=== PATIENT | female | born 1935 | race Caucasian/White ===

== ENCOUNTER → 2016-08-18 10:52 | Outpatient (CLI) | payer MEDICARE ==
[2013-01-17 13:32] VITALS: BMI 24.3
[~2016-08-18 10:52] MED LIST: CALCIUM 600+D T1 TA1 OR; FISH OIL 1,0001 CA1 PO; RED YEAST RICE600 MG PO; SINGULAIR5 MG PO; SYNTHROID125 MCG PO; VITAMIN D31000 UNIT OR; WELLBUTRIN XL300 M1 PO
== END | disposition home or self-care (01) ==
LOC: D.US 10:52
DX: C78.5 Secondary malignant neoplasm of large intestine and rectum (principal)

== ENCOUNTER 2016-12-08 06:13 | Emergency (ER) | payer MEDICARE ==
[2013-01-17 13:32] VITALS: BMI 24.3
[2016-12-08 07:49] LABS: BASOPHILS 0.5 % (0-2); EOSINOPHILS 3.8 % (0-7); HEMATOCRIT 43.1 % (36.0-48.0); IMMATURE GRANULOCYTES 0.4 % (0-5); LYMPHOCYTES 23.4 % (15-50); MCH 30.5 pg (26.0-34.0); MCHC 32.5 g/dL (31.0-37.0); MCV 93.9 fL (80.0-100.0); MEAN PLATELET VOLUME 9.4 fL (7.4-10.4); MONOCYTES 5.2 % (2-11); NEUTROPHILS 66.7 % (40-80); PLATELET COUNT 208 10x3/uL (130-400); RBC 4.59 10x6/uL (4.00-5.40); RDW 13.2 % (11.5-14.5); WBC 5.6 10x3/uL (4.8-10.8)
[2016-12-08 07:52] LABS: APPEARANCE CLEAR (CLEAR); BILIRUBIN NEGATIVE (NEGATIVE); COLOR YELLOW (YELLOW); GLUCOSE NEGATIVE (NEGATIVE); KETONE NEGATIVE (NEGATIVE); LEUKOCYTE ESTERASE NEGATIVE (NEGATIVE); NITRITE NEGATIVE (NEGATIVE); PROTEIN NEGATIVE (NEGATIVE); SPECIFIC GRAVITY 1.005 (1.005-1.020); UROBILINOGEN NORMAL (NORMAL)
[2016-12-08 08:07] LABS: ALBUMIN 3.7 g/dL (3.4-5.0); ALKALINE PHOSPHATASE 39 U/L (46-116); ALT (SGPT) 18 U/L (10-68); CALC OSMOLALITY 281 mosm/kg (275-300); CALCIUM 9.3 mg/dL (8.5-10.1); CARBON DIOXIDE 29.3 mmol/L (21.0-32.0); CHLORIDE - SERUM 105 mmol/L (98-107); GLUCOSE 107 mg/dL (74-106); POTASSIUM - SERUM 3.9 mmol/L (3.5-5.1); PROTEIN - SERUM 7.3 g/dL (6.4-8.2); SODIUM 142 mmol/L (136-145); UREA NITROGEN 9 mg/dL (7-18); eGFR NON AFRICAN AMERICAN 57 mL/min (90-120)
[2016-12-08 08:15] LABS: CREATINE KINASE 47 UL (21-215); MAGNESIUM - SERUM 2.3 mg/dL (1.8-2.4); PRO BNP 58 pg/mL (0-450); TROPONIN-I < 0.017 ng/mL (0.000-0.060)
== END 2016-12-08 10:00 | disposition home or self-care (01) ==
LOC: D.ER 06:13
PROVIDERS: Emergency Medicine
DX: R53.1 Weakness (principal); Z85.3 Personal history of malignant neoplasm of breast; I49.3 Ventricular premature depolarization

== ENCOUNTER → 2017-01-12 10:00 | Outpatient (CLI) | payer MEDICARE ==
[2013-01-17 13:32] VITALS: BMI 24.3
== END | disposition home or self-care (01) ==
LOC: D.RAD 09:30 → D.US 10:00 → D.RAD 11:30
DX: R10.9 Unspecified abdominal pain (principal); R94.5 Abnormal results of liver function studies

== ENCOUNTER → 2017-08-05 14:21 | Outpatient (CLI) | payer MEDICARE ==
[2013-01-17 13:32] VITALS: BMI 24.3
== END | disposition home or self-care (01) ==
LOC: D.US 14:21
DX: C50.812 Malignant neoplasm of overlapping sites of left female breast (principal); C78.5 Secondary malignant neoplasm of large intestine and rectum; C78.89 Secondary malignant neoplasm of other digestive organs; R60.0 Localized edema

== ENCOUNTER → 2017-09-01 11:10 | Outpatient (CLI) | payer MEDICARE ==
[2013-01-17 13:32] VITALS: BMI 24.3
== END | disposition home or self-care (01) ==
LOC: D.US 11:00
DX: I87.2 Venous insufficiency (chronic) (peripheral) (principal)

== ENCOUNTER 2017-12-14 19:11 | Inpatient (IN) | payer MEDICARE ==
[~2017-12-14] VITALS: Ht 172.7 cm; Wt 63.8 kg
[2017-12-14] VITALS (13 sets, daily range): BP systolic 73–101; BP diastolic 39–59
--- NOTE | ~2017-12-14 | HEMODYNAMI ---
PATIENT:ROBBIN LONG MEDICAL RECORD: [id number] : 39 LOCATION:[facility] D.2307 ADMISSION DATE: 12/14/17 Generatedon:12/18/201714:44 Patient name: ROBBIN LONG Patient #: [id number] SSN: : 1935 Date of study: 12/18/2017 Page: Of Hemodynamic Procedure Report Patient Data Patient Demographics Procedure consent was obtained First Name: ROBBIN Gender: Female Last Name: MERCEDES : 1935 [facility] Initial: NATHALY Age: 82 year(s) Patient #: [id number] Race: Unknown Additional ID: [id number] Contact details [address]: [address] [place] [address] [place] State: [place] City: [place] Zip code: [address] Past Medical History Allergies: No known allergies Admission Admission Data Admission Date: 12/14/2017 Admission Time: 22:35 Room #: 2307 Procedure Procedure Types Cath Procedure Diagnostic Procedure LHC LHC w/Coronaries Sedation Charges Moderate Sedation up to 15 minutes PCI Procedure Coronary Stent Coronary Stent Initial x2 Procedure Description Procedure Date Procedure Date: 12/18/2017 Procedure Start Time: 14:17 Procedure End Time: 14:44 Procedure Staff Name Function Americo Bangura MD Performing Physician Moira Henry RT Monitor Randall Pringle RN Nurse Paul James RT Scrub Procedure Data Cath Procedure Fluoroscopy Diagnostic fluoroscopy Total fluoroscopy Time: 6.5 time: 6.5 min min Diagnostic fluoroscopy Total fluoroscopy dose: 664 dose: 664 mGy mGy Contrast Material Contrast Material Type Amount (ml) Isovue 300 174 Entry Location Entry Primary Successful Side Size Upsize Upsize Entry Closure Succes sful Closure Location (Fr) 1 (Fr) 2 (Fr) Remarks Device Remarks Femoral Right 5 Fr 6 Fr Exoseal artery Short Estimated blood loss: 10 ml Diagnostic catheters Device Type Used For End Catheter Placement MULTIPACK Pigtail 5 Fr LV Angiography catheter MULTIPACK JL 4.0 5Fr Left Coronary catheter Angiography MULTIPACK 3DRC 5Fr Right Coronary catheter Angiography Procedure Complications No complications Procedure Medications Medication Administration Route Dosage 0.9% NaCl I.V. 100 ml/hr Oxygen NC 2 l/min Heparin Flush Bag added to field 2 bags (1000units/500ml NS) Lidocaine 2% added to field 20 Versed I.V. 1 mg Fentanyl I.V. 50 mcg Versed I.V. 1 mg Fentanyl I.V. 50 mcg Heparin Bolus I.V. 4000 units Integrilin (Bolus I.V. 5.6 ml 2mg/ml) Integrilin (Bolus wasted 4.4 ml 2mg/ml) Plavix P.O. 600 mg Hemodynamics Rest Pre Cath Intra NCS Post Cath Vital Signs Time Heart Resp SPO2 etCO2 NIBP Rhythm Pain Sedation Rate (ipm) (%) (mmHg) (mmHg) Status Level (bpm) 14:10:46 71 21 96 0 133/57(78) NSR 0 (11) 10(A) , No pain 14:15:27 71 20 94 0 125/54(75) NSR 0 (11) 10(A) , No pain 14:20:05 72 17 91 0 122/59(80) NSR 0 (11) 10(A) , No pain 14:24:44 71 18 92 0 113/50(83) NSR 0 (11) 9(A) , No pain 14:29:22 72 19 93 0 120/36(80) NSR 0 (11) 9(A) , No pain 14:34:01 72 18 92 0 119/48(84) NSR 0 (11) 10(A) , No pain 14:38:38 71 21 89 0 126/54(85) NSR 0 (11) 10(A) , No pain 14:43:18 72 19 94 0 118/48(85) NSR 0 (11) 10(A) , No pain Medications Time Medication Route Dose Verified Delivered Reason Notes Effectiveness by by 14:09:56 0.9% NaCl I.V. 100 Randall Randall Per physician ml/hr Pino Pringle RN RN 14:10:06 Oxygen NC 2 Randall Randall Per physician l/min Pino Pringle RN RN 14:10:18 Heparin Flush added 2 Randall Randall used for Bag to bags Pino Pringle procedure (1000units/500ml field RN RN NS) 14:10:28 Lidocaine 2% added 20ml Randall Randall for local to vial Pino Pringle anesthetic field RN RN 14:16:35 Versed I.V. 1 mg Randall Randall for sedation Pino Pringle RN RN 14:16:46 Fentanyl I.V. 50 Randall Randall for sedation mcg Pino Pringle RN RN 14:18:48 Versed I.V. 1 mg Randall Randall for sedation Pino Pringle RN RN 14:18:55 Fentanyl I.V. 50 Randall Randall for sedation mcg Pino Pringle RN RN 14:23:57 Heparin Bolus I.V. 4000 Randall Randall for units Pino Pringle anticoagulation RN RN 14:24:11 Integrilin I.V. 5.6 Randall Randall for (Bolus 2mg/ml) ml Pino Pringle antiplatelet RN RN therapy 14:24:23 Integrilin wasted 4.4 Randall Randall to sharp's (Bolus 2mg/ml) ml Pino Pringle RN RN 14:37:59 Plavix P.O. 600 Randall Randall for mg Pino Pringle antiplatelet RN RN therapy Procedure Log Time Note 13:45:35 Time tracking: Regular hours (M-F 7:00 - 5:00) 13:45:39 Plan of Care:Hemodynamics will remain stable., Cardiac rhythm will remain stable., Comfort level will be maintained., Respiratory function will remain adequate., Patient/ family verbilizes understanding of procedure., Procedure tolerated without complication., Recovers from procedure without complications.. 13:45:42 Paul James RT(R) sent for patient. Start room use. 13:57:53 Patient received from ICU to CCL 1 Alert and oriented. Tansferred to table in Supine position. 13:57:55 Warm blankets applied, and navya hugger turned on for patient comfort. 13:57:56 Correct patient and procedure confirmed by team. 13:58:03 Signed procedure consent form obtained from patient. 13:58:04 ECG and BP/O2 sat monitors applied to patient. 14:09:56 0.9% NaCl 100 ml/hr I.V. was administered by Randall Pringle RN; Per physician; 14:09:59 Vital chart was started 14:10:06 Oxygen 2 l/min NC was administered by Randall Lorigan RN; Per physician; 14:10:06 Rhythm: sinus rhythm 14:10:08 Full Disclosure recording started 14:10:14 H&P Date Dictated: 12/14/2017 Within 30 days and on chart.. 14:10:16 Pre-procedure instructions explained to patient. 14:10:16 Pre-op teaching completed and patient verbalized understanding. 14:10:18 Heparin Flush Bag (1000units/500ml NS) 2 bags added to field was administered by Randall Pringle RN; used for procedure; 14:10:18 Family in waiting room. 14:10:21 Patient NPO since Midnight. 14:10:26 Patient allergic to No known allergies 14:10:28 Lidocaine 2% 20ml vial added to field was administered by Randall Pringle RN; for local anesthetic; 14:10:29 Is the patient allergic to Iodine/contrast media? No. 14:10:33 Is patient on blood thinner?No 14:10:35 Patient diabetic? No. 14:10:37 Previous problem with sedation/anesthesia? No ? 14:10:38 Snore? No 14:10:39 Sleep apnea? No 14:10:40 Deviated septum? No 14:10:41 Opens mouth fully? Yes 14:10:42 Sticks out tongue? Yes 14:10:43 Airway obstruction? No ? 14:10:51 Dentures? No IN TIGHT 14:15:38 Pre procedure: right dorsailis pedis pulse 2+ Normal; easily identifiable; not easily obliterated 14:15:42 Patient pain scale 0/10 ?. 14:15:51 IV patent on arrival in port, Rt subclavian with 0.9% NaCl at KVO. 14:15:57 Lab results completed and on chart. 14:16:01 Right groin area was prepped with chlora-prep and draped in sterile fashion 14:16:02 Alarms reviewed by R. N. 14:16:02 Sharps counted by scrub and verified by R.N. 14:16:04 Final Timeout: patient, procedure, and site verified with staff and physician. All members of the team are in agreement. 14:16:05 Right groin site verified by team. 14:16:08 Physical assessment completed. ASA score P 2 - A patient with mild systemic disease as per Americo Bangura MD. 14:16:11 Sedation plan: IV Moderate Sedation Medication:Versed, Fentanyl 14:16:14 Zero performed for pressure channel P1 14:16:35 Versed 1 mg I.V. was administered by Randall Pringle RN; for sedation; 14:16:46 Fentanyl 50 mcg I.V. was administered by Randall Pringle RN; for sedation; 14:17:13 Procedure started. 14:17:16 Local anesthetic to right femoral artery with Lidocaine 2% by Americo Bangura MD.INITIAL ACCESS ONLY 14:17:18 Use device set Femoral Dx 14:17:19 ACIST Syringe (15213) opened to sterile field. 14:17:19 Bag Decanter (2002S) opened to sterile field. 14:17:19 Medline Cath Pack ([id number]) opened to sterile field. 14:17:20 DIAGNOSTIC WIRE .035 260cm J wire (251568) opened to sterile field. 14:17:21 ACIST Hand Control (91518) opened to sterile field. 14:17:22 ACIST Manifold (41024) opened to sterile field. 14:17:22 DIAGNOSTIC Multipack 5Fr catheter set ([id number]) opened to sterile field. 14:17:23 Tegaderm 4 x 4 (1626W) opened to sterile field. 14:17:24 SHEATH Prelude 5Fr 0.035 (FHH-2K-38-035) opened to sterile field. 14:17:33 A 5 Fr sheath was inserted into the Right Femoral artery 14:17:58 A MULTIPACK Pigtail 5 Fr catheter was advanced over the wire and used for LV Angiography. 14:18:38 LV gram done using PEREIRA 14:18:42 Injector settings: Ml/sec: 10, Volume: 20, 14:18:48 Versed 1 mg I.V. was administered by Randall Pringle RN; for sedation; 14:18:48 EF : 60 % 14:18:50 Catheter removed. 14:18:55 Fentanyl 50 mcg I.V. was administered by Randall Pringle RN; for sedation; 14:18:56 A MULTIPACK JL 4.0 5Fr catheter was advanced over the wire and used for Left Coronary Angiography. 14:20:21 Catheter removed. 14:20:30 A MULTIPACK 3DRC 5Fr catheter was advanced over the wire and used for Right Coronary Angiography. 14:20:50 Use device set MAGALYS PCI 14:20:52 SHEATH Prelude 6Fr 0.035 (XSB-6V-78-035) opened to sterile field. 14:20:54 INFLATOR Merit BasixCompak (KS6077) opened to sterile field. 14:21:12 Catheter removed. 14:21:21 Sheath upsized to a 6 Fr Short. 14:23:52 6 Fr XBLAD 3.5 SH guide catheter was inserted over the wire 14:23:57 Heparin Bolus 4000 units I.V. was administered by Randall Pringle RN; for anticoagulation; 14:24:11 Integrilin (Bolus 2mg/ml) 5.6 ml I.V. was administered by Randall Pringle RN; for antiplatelet therapy; 14:24:16 CHOICE PT ES DOWN CIRC wire advanced. 14:24:23 Integrilin (Bolus 2mg/ml) 4.4 ml wasted was administered by Randall Pringle RN; to sharp's; 14:25:20 CHOICE PT ES TO LAD wire advanced. 14:26:14 Inflate balloon Inflation number: 1 A EUPHORA 3.0 x 15 Balloon ([id number]) was prepped and advanced across the Mid LAD, then inflated to 7 HENRIETTA for 0:05 (min:sec). 14:26:29 Balloon removed over the wire. 14:28:17 Place stent Inflation Number: 2 A KENNY RX 3.0 x 15 stent ([id number]) was prepped and advanced across the Mid LAD. The stent was deployed at 13 HENRIETTA for 0:03 (min:sec). 14:28:56 Stent catheter was removed intact over wire. 14:30:34 Place stent Inflation Number: 1 A KENNY RX 3.0 x 15 stent ([id number]) was prepped and advanced across the Prox CX. The stent was deployed at 13 HENRIETTA for 0:03 (min:sec). 14:31:02 Stent catheter was removed intact over wire. 14:31:10 CIRC WIRE REMOVED 14:33:28 Inflate balloon Inflation number: 1 A EUPHORA 2.0 x 12 Balloon ([id number]) was prepped and advanced across the LMCA, then inflated to 21 HENRIETTA for 0:04 (min:sec). 14:33:42 Balloon removed over the wire. 14:35:04 Place stent Inflation Number: 2 A KENNY RX 3.0 x 12 stent ([id number]) was prepped and advanced across the LMCA. The stent was deployed at 15 HENRIETTA for 0:03 (min:sec). 14:35:51 Guide catheter removed. 14:35:51 Wire removed. 14:35:59 Sheath removed intact; hemostasis achieved with Exoseal to the Right Femoral artery. 14:36:06 Procedure ended.(Physican Out) 14:36:11 Fluoroscopy time 06.50 minutes. 14:36:16 Flurop Dose total: 664 14:36:16 Fluoroscopy dose: 664 mGy 14:36:19 Contrast amount:Isovue 300 174ml. 14:36:20 Sharps counted by scrub and verified by R.N. 14:36:21 Insertion/operative site no bleeding no hematoma. 14:36:24 Post-op/insertion site Right Femoral artery dressed using a 4 x 4 and Tegaderm. 14:36:27 Post right femoral artery:stable, clean and dry 14:36:29 Post Procedure Pulses reassessed and unchanged 14:36:31 Post-procedure physical assessment completed. ASA score P 2 - A patient with mild systemic disease as per Americo Bangura MD. 14:36:33 Post procedure rhythm: unchanged. 14:36:36 Estimated blood loss: 10 ml 14:36:37 Post procedure instruction explained to patient.Patient verbalizes understanding. 14:36:38 Patient needs reinforcement of post procedure teaching. 14:37:14 Procedure type changed to Cath procedure, Diagnostic procedure, LHC, LHC w/Coronaries, Sedation Charges, Moderate Sedation up to 15 minutes, PCI procedure, Coronary Stent, Coronary Stent Initial x2 14:37:50 Procedure Complication : No complications 14:37:52 See physician's report for complete and final results. 14:37:59 Plavix 600 mg P.O. was administered by Randall Pringle RN; for antiplatelet therapy; 14:40:02 EXOSEAL 6Fr (EX600) opened to sterile field. 14:40:17 GUIDE 6FR XBLAD 3.5 SH catheter ([id number]) opened to sterile field. 14:42:45 CHOICE PT Extra Support 182cm wire ([id number]) opened to sterile field. 14:42:53 CHOICE PT Extra Support 182cm wire ([id number]) opened to sterile field. 14:44:02 Procedure and supply charges have been captured, reviewed, submitted and are correct. 14:44:02 Vital chart was stopped 14:44:05 Report given to ICU. 14:44:08 Patient transfered to ICU with Bed. 14:44:16 Full Disclosure recording stopped 14:44:22 Procedure ended. 14:44:29 End room use (Document Last) Intervention Summary Intervention Notes Time ActionType Lesion and Equipment Used Action# Pressure Duration Attributes 14:26:14 Inflate Mid LAD EUPHORA 3.0 x 1 7 00:05 balloon 15 Balloon ([id number]) 14:28:17 Place stent Mid LAD KENNY RX 3.0 x 2 13 00:03 15 stent ([id number]) 14:30:34 Place stent Prox CX KENNY RX 3.0 x 1 13 00:03 15 stent ([id number]) 14:33:28 Inflate LMCA EUPHORA 2.0 x 1 21 00:04 balloon 12 Balloon ([id number]) 14:35:04 Place stent LMCA KENNY RX 3.0 x 2 15 00:03 12 stent ([id number]) Device Usage Item Name Manufacture Quantity Catalog Number Hospital Part Current Minimal Lot# / Charge Number Stock Stock Serial# Code ACIST Syringe Acist 1 30023 546607 777771 228208 20 (46292) [employer] Inc Bag Decanter Microtek 1 2001S 973723 44947 788299 5 (2001S) Medical Inc. Medline Cath Cardinal 1 [id number] 182253 41241 494738 5 Pack Health ([id number]) DIAGNOSTIC WIRE St Jonas 1 094937 150474 141022 110789 30 .035 260cm J wire (859843) ACIST Hand Acist 1 74666 664296 220128 700558 5 Control (61426) [employer] Inc ACIST Manifold Acist 1 83284 518597 692626 975552 5 (07252) [employer] Systems Inc DIAGNOSTIC Cardinal 1 HM4223 647017 73874 906605 30 Multipack 5Fr Health catheter set (PO5832) Tegaderm 4 x 4 3M 1 1626W 244218 845638 516496 5 (1626W) SHEATH Prelude Merit 1 LOT-3X-29-035 324857 481183 501830 5 5Fr 0.035 Medical (PCI-0G-74-035) MULTIPACK Cardinal 1 373490 5 Pigtail 5 Fr Health catheter MULTIPACK JL Cardinal 1 604927 5 4.0 5Fr Health catheter MULTIPACK 3DRC Cardinal 1 048431 5 5Fr catheter Health SHEATH Prelude Merit 1 VJR-0X-13-35 445921 2712945 878722 5 6Fr 0.035 Medical (FJK-9G-84-035) INFLATOR Merit Merit 1 CU2049 204717 043619 597402 15 BasixCompak Medical (OT8953) EUPHORA 3.0 x Medtronic 1 [id number] 911553 211063 030995 5 [id number] 15 Balloon ([id number]) KENNY RX 3.0 x Medtronic 2 [id number] 938709 6561250 799562 5 [id number] 15 stent [id number] ([id number]) EUPHORA 2.0 x Medtronic 1 [id number] 134312 680768 837273 5 [id number] 12 Balloon ([id number]) KENNY RX 3.0 x Medtronic 1 [id number] 731130 8962456 984428 5 [id number] 12 stent ([id number]) EXOSEAL 6Fr Cardinal 1 EX600 476256 102981 199462 10 (EX600) Health GUIDE 6FR XBLAD Cardinal 1 [id number] 527582 308925 543348 3 3.5 catheter Health ([id number]) CHOICE PT Extra Chambers 2 [id number] 916804 912998 842056 5 Support 182cm Scientific wire ([id number]) Signature Audit [place] Stage Time Signature Unsigned Intra-Procedure 12/18/2017 Moira 2:44:44 PM Counts RT(R) Signatures Monitor : Moira Signature : Counts RT Date : Time : [facility] [address] [place] [address]
--- NOTE | ~2017-12-14 | EC ---
PATIENT:ROBBIN LONG DATE OF SERVICE: 12/14/17 SEX: F MEDICAL RECORD: [id number] DATE OF : [birth year] LOCATION:D.[facility] D.230 AGE OF PATIENT: 82 ADMISSION DATE: 12/14/17 REFERRING PHYSICIAN: INTERPRETING PHYSICIAN: MYNOR BANGURA MD ECHOCARDIOGRAM REPORT ECHO CHARGES 4 ECHO COMPLETE Date: 12/15/17 CLINICAL DIAGNOSIS: CHEST PAIN, AFIB ECHOCARDIOGRAPHIC MEASUREMENTS (adult normal given) AC root (d.<3.7cm) 2.5 cm LV Septum d (<1.2 cm> 1.2 cm Valve Excursion 1.4 cm LV Septum (systole) 1.5 cm Left Atria (s.<4.0cm> 3.2 cm LVPW d(<1.2cm) 1.0 cm RV (d.<2.3cm) 2.8 cm LVPW (sytole) 1.1 cm LV diastole(<5.6CM) 4.1 cm MV E-F(>70mm/sec) cm LV systole 2.8 cm LVOT Diameter 1.8 cm MV exc.(>10mm) 1.3 cm Est.ejection fraction (50-75%) % DOPPLER: LVIT cm/sec A 110 cm/sec E 98.0 cm/sec LA cm/sec RVSP 41 mmHg LVOT 114 cm/sec AOP1/2T m/s Asc. Ao 169 cm/sec RVOT 80 cm/sec RA cm/sec PA 94 cm/sec AV Gradient Peak 11.42mmHg AV Mean 6.54 mmHg AV Area 1.9 cm MV Gradient Peak 5.05 mmHg MV Mean 2.12 mmHg MV Area cm COMMENTS: Plasma Processing Technician: Deana LYNN Sound Mixer: 1 Dr. Bangura TAPE# PACS Pericardial Effusion Y DATE OF SERVICE: 12/15/2017 ECHOCARDIOGRAM FINDINGS: 1. Left ventricular chamber size is within normal limits. Left ventricular systolic function is normal. Overall ejection fraction estimated at 60%. 2. Left atrium, right atrium, and right ventricular chamber sizes are within normal limits. 3. Valvular structures have normal structure and motion. ECHOCARDIOGRAM REPORT [id number] ROBBIN LONG 4. Doppler interrogation reveals trace mitral regurgitation, mild to moderate tricuspid regurgitation, no other valvular insufficiency or stenosis. Pulmonary systolic pressure is estimated 41 mmHg. 5. Large pericardial effusion is present; however, there is no sign of right atrial or right ventricular collapse. TRANSINT:[id number] Voice Confirmation ID: [id number] DOCUMENT ID: [id number] MYNOR BANGURA MD at 1950 CC: [id number] DICTATION DATE: 12/15/17 1103 METALIZER: 12/15/17 1110 ADM IN [place] [address] [place] [address]
--- NOTE | ~2017-12-14 | OP ---
PATIENT NAME: ROBBIN LONG MEDICAL RECORD: [id number] :[birth year] LOCATION:D. D.2115 ADMISSION DATE:12/14/17 SURGEON: RICHARD WEINSTEIN MD DATE OF OPERATION: 12/15/2017 SURGEON: Richard Weinstein MD ANESTHESIA: General endotracheal, Dr. Mcdaniel. OPERATION PERFORMED: Subxiphoid anterior pericardiectomy and drainage. PREOPERATIVE DIAGNOSIS: Large pericardial effusion with tamponade physiology. POSTOPERATIVE DIAGNOSIS: Large pericardial effusion with tamponade physiology. INDICATION FOR OPERATION: Symptomatic large pericardial effusion. FINDINGS AT OPERATION: A cloudy serous pericardial effusion. ESTIMATED BLOOD LOSS: Cell Saver was used. DESCRIPTION OF PROCEDURE: After informed consent, adequate preoperative medication evaluation, the patient was brought to the operating room, placed on the table in supine position. After induction of general endotracheal anesthesia and application of appropriate monitoring devices, the chest and abdomen were prepped and draped in sterile field, utilizing Betadine scrub, alcohol, and Betadine solution. A Betadine-impregnated drape was also used. An upper celiotomy incision was made and dissection carried down the fascia. Hemostasis maintained with electrocautery. The preperitoneal space was dissected free of surrounding structures. A retractor was placed under the xiphoid and the retrosternal area dissected. The pericardium was then opened. The pericardial fluid was sent for aerobe, anaerobe, TB, fungus as well as cytology. The incision was opened along the diaphragm and the anterior pericardium removed. This was sent to pathology for histology. The pericardium was irrigated. A #24 Ricky drain was placed in the pericardium and brought out through the epigastric area. Instrument count and sponge counts were correct times 2. Hemostasis was assured. The wound was closed in layers utilizing 0 Ethibond interrupted sutures on the linea alba, 2-0 Vicryl on the subcutaneous tissue and skin approximated with 3-0 subcuticular Vicryl. Sterile dressings were applied. The patient tolerated the procedure well and was transferred to the ICU in stable condition. TRANSINT:[id number] Voice Confirmation ID: [id number] DOCUMENT ID: [id number] RICHARD WEINSTEIN MD at 1234 CC: [id number] DICTATION DATE: 12/15/17 1700 MANAGEMENT COORDINATOR: 12/15/17 1724 ADM IN [facility] [address] [place] [id number]
--- NOTE | ~2017-12-14 | CN ---
PATIENT NAME:ROBBIN PAULINO MEDICAL RECORD: [id number] : 39 LOCATION:[facility].2307 ADMIT DATE: 12/14/17 ACCOUNT: [id number] CONSULTING PHYSICIAN: MYNOR DOWELL MD REFERRING PHYSICIAN: JOY NG DO DATE OF CONSULTATION: 12/15/2017 CARDIOLOGY CONSULT DIAGNOSES: 1. Pericardial effusion. 2. Breast cancer. 3. Chest pain. 4. Atrial fibrillation with rapid response. HISTORY OF PRESENT ILLNESS: Mrs. Paulino presents with chest pain, shortness of breath, found to be in atrial fibrillation with rapid response. She converted to sinus rhythm. She, as well, was found to have a very large pericardial effusion. She does have a history of breast cancer and she has been on chemotherapy since 2007 for the breast cancer. PHYSICAL EXAMINATION: GENERAL APPEARANCE: Well-nourished, well-developed, appears stated age. Level of distress, comfortable. PSYCHIATRIC: Mental status, alert, normal affect. Orientation, oriented to time, place and person. EYES: Lids and conjunctiva, noninjected. No discharge, no pallor. ENT: Lips, teeth, gums, normal dentition. Oropharynx, no cyanosis, no pallor. NECK: Carotid arteries, bilateral normal upstroke, no bruits, no thrills. JUGULAR VEINS: No jugular venous pressure or distention. CERVICAL LYMPH NODES: Nontender, nonenlarged. THYROID: Not enlarged. Nontender. No nodules. LUNGS: Respiratory effort, unlabored. CHEST: Normal curvature. No thoracic deformity. No chest wall tenderness. Percussion, resonant. Auscultation, clear. No wheezes, no rales, no rhonchi. CARDIOVASCULAR: Precordial exam, nondisplaced. No heaves or pericardial thrills. Rate and rhythm, regular. Heart sounds, normal S1, normal S2. No S3, no gallop, no rub. Systolic murmur, not heard. Diastolic murmur, not heard. EXTREMITIES: No cyanosis, no edema. Peripheral pulses, full and equal in all extremities, except as noted. No bruits appreciated. ABDOMEN: Soft, nondistended. Normal aorta. No bruit. Nontender. No masses. Liver, nontender, no hepatomegaly. Spleen, nontender, no splenomegaly. MUSCULOSKELETAL: No joint tenderness. No joint swelling. No erythema. NEUROLOGICAL: Normal gait, normal strength, normal tone. SKIN: Warm and dry. OVERALL IMPRESSION: Large pericardial effusion. We will need pericardial window and send this for cytology as there is a high likelihood that this could possibly be recurrent breast cancer. We will consult CT surgery for that. As far as the chest pain and atrial fibrillation goes, that this could be related only to the pericardial effusion or could, however, be ischemic heart disease. After the pericardial window, we would proceed with coronary angiography. Further care depends upon the findings of the angiography. TRANSINT:[id number] Voice Confirmation ID: [id number] DOCUMENT ID: [id number] CONSULT REPORT [id number] ROBBIN PAULINO, MYNOR SHANKAR at 1950 CC: [id number] DICTATION DATE: 12/15/17928 STRAW HAT PLUNGER OPERATOR: 12/15/17943 ADM IN [place] [address] [place] [id number]
--- NOTE | ~2017-12-14 | OP ---
PATIENT NAME: ROBBIN LONG MEDICAL RECORD: [id number] :37 LOCATION:D.[facility] D.2307 ADMISSION DATE:12/14/17 SURGEON: MYNOR DOWELL MD DATE OF OPERATION: 12/18/2017 PROCEDURES: 1. PTCA stent left main. 2. PTCA stent left circumflex. 3. PTCA stent left anterior descending. 4. Left heart catheterization. 5. Selective coronary angiography. 6. Left ventriculogram. INDICATION: Angina and coronary artery disease. PROCEDURE IN DETAIL: After informed consent was obtained and after a detailed description of the risks, benefits as well as alternative therapies, the patient elected to proceed with angiogram and angioplasty. The right femoral area was prepped and draped in normal sterile fashion. Right femoral artery was cannulated via modified Seldinger technique with placement of 6-Lithuanian sheath. All catheters exchanged through this sheath. FINDINGS: The left ventriculogram was performed in standard 30-degree PEREIRA view, reveals good cardiac wall motion throughout all segments. Overall ejection fraction estimated 60%. SELECTIVE CORONARY ANGIOGRAPHY: 1. Left main is with a 90% stenosis distally. 2. The left anterior descending is 95% stenosed proximally. 3. The left circumflex is 95% stenosed proximally. 4. The right coronary artery is 80% stenosed in the mid vessel. PTCA STENT OF THE LEFT MAIN, LAD AND CIRCUMFLEX: The LAD was addressed with a 3.0 x 15 mm Hart, the left circumflex with a 3.0 x 15 mm Hart, the left main with a 3.0 x 12 mm Dre. Result was 0% residual stenosis. OVERALL IMPRESSION: Successful percutaneous transluminal coronary angioplasty stent of LAD, circumflex and left main going from 95% initial stenosis to 0% residual. TRANSINT:[id number] Voice Confirmation ID: [id number] DOCUMENT ID: [id number] MYNOR DOWELL MD at 1950 CC: [id number] DICTATION DATE: 12/18/17 1440 CHANNEL DIRECTOR: 12/18/17 1452 ADM IN [address] [id number] [place] [address]
[2017-12-14 19:49] LABS: BASOPHILS 0.4 % (0-2); EOSINOPHILS 1.3 % (0-7); HEMATOCRIT 39.3 % (36.0-48.0); HEMOGLOBIN 12.8 g/dL (12-16); IMMATURE GRANULOCYTES 0.3 % (0-5); LYMPHOCYTES 10.7 % (15-50); MCH 29.9 pg (26.0-34.0); MCHC 32.6 g/dL (31.0-37.0); MCV 91.8 fL (80.0-100.0); MEAN PLATELET VOLUME 9.3 fL (7.4-10.4); MONOCYTES 12.1 % (2-11); NEUTROPHILS 75.2 % (40-80); PLATELET COUNT 175 10x3/uL (130-400); RBC 4.28 10x6/uL (4.00-5.40); RDW 20.6 % (11.5-14.5); WBC 10.4 10x3/uL (4.8-10.8)
[2017-12-14 20:10] LABS: ALBUMIN 3.1 g/dL (3.4-5.0); ALKALINE PHOSPHATASE 52 U/L (46-116); ALT (SGPT) 59 U/L (10-68); BILIRUBIN - TOTAL 1.46 mg/dL (0.2-1.3); CALC OSMOLALITY 279 mosm/kg (275-300); CALCIUM 7.9 mg/dL (8.5-10.1); CARBON DIOXIDE 22.7 mmol/L (21.0-32.0); CHLORIDE - SERUM 104 mmol/L (98-107); CREATININE - SERUM 1.1 mg/dL (0.6-1.3); GLUCOSE 149 mg/dL (74-106); POTASSIUM - SERUM 3.9 mmol/L (3.5-5.1); PROTEIN - SERUM 5.8 g/dL (6.4-8.2); SODIUM 138 mmol/L (136-145); UREA NITROGEN 15 mg/dL (7-18); eGFR NON AFRICAN AMERICAN 51 mL/min (90-120)
[2017-12-14 20:25] LABS: CKMB 0.2 U/L (0.0-3.6); CREATINE KINASE 19 UL (21-215); TROPONIN-I < 0.017 ng/mL (0.000-0.060)
[2017-12-14 21:20] LABS: MAGNESIUM - SERUM 1.9 mg/dL (1.8-2.4)
[2017-12-15] VITALS (47 sets, daily range): BP systolic 92–146; BP diastolic 38–104; Ht 172.7 cm; Wt 63.8 kg
[2017-12-15 00:04] LABS: APPEARANCE CLEAR (CLEAR); BILIRUBIN NEGATIVE (NEGATIVE); COLOR YELLOW (YELLOW); GLUCOSE NEGATIVE (NEGATIVE); KETONE NEGATIVE (NEGATIVE); NITRITE NEGATIVE (NEGATIVE); PROTEIN TRACE mg/dL (NEGATIVE); UROBILINOGEN NORMAL (NORMAL)
[2017-12-15 00:05] LABS: WHITE CELLS - URINE 0-5 /hpf (0-5)
[2017-12-15 00:06] LABS: BACTERIA FEW /hpf (NONE SEEN); EPITHELIAL CELLS 0-5 /hpf (0-5); HYALINE CAST 0-5 /lpf (NONE SEEN); MUCUS <1+ /lpf (NONE SEEN); RED CELLS - URINE NONE SEEN /hpf (0-5)
[2017-12-15] MEDS ORDERED: BUPROPION XL300 MG PO (00:48)
[2017-12-15] MEDS ORDERED: OMEPRAZOLE40 MG PO (00:50)
[2017-12-15 01:55] LABS: CKMB 0.5 U/L (0.0-3.6); CREATINE KINASE 27 UL (21-215); TROPONIN-I 0.024 ng/mL (0.000-0.060)
[2017-12-15 09:46] LABS: CKMB 0.7 U/L (0.0-3.6); CREATINE KINASE 19 UL (21-215); TROPONIN-I < 0.017 ng/mL (0.000-0.060)
[2017-12-15 11:01] LABS: INR 1.56 (0.85-1.17); PROTIME 18.2 SECONDS (11.6-15.0)
[2017-12-15 11:03] LABS: APTT 92.4 SECONDS (22.8-39.4)
[2017-12-15 11:08] LABS: BASOPHILS 0.2 % (0-2); EOSINOPHILS 1.5 % (0-7); HEMATOCRIT 35.5 % (36.0-48.0); HEMOGLOBIN 11.4 g/dL (12-16); IMMATURE GRANULOCYTES 0.2 % (0-5); LYMPHOCYTES 17.7 % (15-50); MCH 29.6 pg (26.0-34.0); MCHC 32.1 g/dL (31.0-37.0); MCV 92.2 fL (80.0-100.0); MEAN PLATELET VOLUME 9.9 fL (7.4-10.4); MONOCYTES 11.6 % (2-11); NEUTROPHILS 68.8 % (40-80); PLATELET COUNT 150 10x3/uL (130-400); RBC 3.85 10x6/uL (4.00-5.40); RDW 20.9 % (11.5-14.5)
[2017-12-15 11:16] LABS: ALBUMIN 2.6 g/dL (3.4-5.0); ANION GAP 11.2 mmol/L (8-16); BILIRUBIN - TOTAL 0.81 mg/dL (0.2-1.3); CALCIUM 7.5 mg/dL (8.5-10.1); CARBON DIOXIDE 26.4 mmol/L (21.0-32.0); POTASSIUM - SERUM 3.6 mmol/L (3.5-5.1); PROTEIN - SERUM 5.1 g/dL (6.4-8.2); T4 THYROXIN - FREE 1.69 ng/dL (0.76-1.46); THYROID STIMULATING HORMONE 0.05 uIU/mL (0.36-3.74); URIC ACID 4.7 mg/dL (2.6-7.2)
[2017-12-15 19:00] LABS: CKMB 1.6 U/L (0.0-3.6); CREATINE KINASE 70 UL (21-215); TROPONIN-I 0.025 ng/mL (0.000-0.060)
[2017-12-16] VITALS (24 sets, daily range): BP systolic 100–124; BP diastolic 46–70
[2017-12-16 06:38] LABS: ALBUMIN 2.5 g/dL (3.4-5.0); ANION GAP 10.3 mmol/L (8-16); BILIRUBIN - TOTAL 1.04 mg/dL (0.2-1.3); CALCIUM 7.7 mg/dL (8.5-10.1); CARBON DIOXIDE 27.8 mmol/L (21.0-32.0); CREATININE - SERUM 0.9 mg/dL (0.6-1.3); PHOSPHOROUS 2.8 mg/dL (2.5-4.9); POTASSIUM - SERUM 4.1 mmol/L (3.5-5.1); PROTEIN - SERUM 5.7 g/dL (6.4-8.2)
[2017-12-16 07:07] LABS: BASOPHILS 0.1 % (0-2); EOSINOPHILS 1.3 % (0-7); HEMATOCRIT 35.6 % (36.0-48.0); HEMOGLOBIN 11.4 g/dL (12-16); IMMATURE GRANULOCYTES 0.2 % (0-5); LYMPHOCYTES 10.7 % (15-50); MCH 29.8 pg (26.0-34.0); MEAN PLATELET VOLUME 9.6 fL (7.4-10.4); MONOCYTES 10.1 % (2-11); NEUTROPHILS 77.6 % (40-80); PLATELET COUNT 166 10x3/uL (130-400); RBC 3.83 10x6/uL (4.00-5.40); RDW 21.1 % (11.5-14.5); WBC 9.8 10x3/uL (4.8-10.8)
[2017-12-17] VITALS (35 sets, daily range): BP systolic 89–129; BP diastolic 45–73
[2017-12-17 06:29] LABS: HEMATOCRIT 36.7 % (36.0-48.0); HEMOGLOBIN 11.8 g/dL (12-16); MCHC 32.2 g/dL (31.0-37.0); MCV 93.4 fL (80.0-100.0); MEAN PLATELET VOLUME 9.6 fL (7.4-10.4); RBC 3.93 10x6/uL (4.00-5.40); RDW 20.9 % (11.5-14.5)
[2017-12-17 06:43] LABS: ALBUMIN 2.3 g/dL (3.4-5.0); ANION GAP 11.8 mmol/L (8-16); BILIRUBIN - TOTAL 0.68 mg/dL (0.2-1.3); CALCIUM 7.8 mg/dL (8.5-10.1); CARBON DIOXIDE 26.1 mmol/L (21.0-32.0); CREATININE - SERUM 0.8 mg/dL (0.6-1.3); POTASSIUM - SERUM 3.9 mmol/L (3.5-5.1); PROTEIN - SERUM 5.7 g/dL (6.4-8.2)
[2017-12-17 21:07] LABS: ACID FAST SMEAR Negative (()); AFB SPECIMEN PROCESSING Concentration (())
[2017-12-17 21:17] LABS: APPEARANCE CLEAR (CLEAR); BILIRUBIN NEGATIVE (NEGATIVE); COLOR YELLOW (YELLOW); GLUCOSE NEGATIVE (NEGATIVE); KETONE NEGATIVE (NEGATIVE); NITRITE NEGATIVE (NEGATIVE); PROTEIN NEGATIVE (NEGATIVE); UROBILINOGEN NORMAL (NORMAL)
[2017-12-18] VITALS (24 sets, daily range): BP systolic 98–147; BP diastolic 42–73
[2017-12-18 04:43] LABS: HEMATOCRIT 32.4 % (36.0-48.0); HEMOGLOBIN 10.8 g/dL (12-16); MCH 30.3 pg (26.0-34.0); MCHC 33.3 g/dL (31.0-37.0); MEAN PLATELET VOLUME 8.9 fL (7.4-10.4); NEUTROPHILS 72.3 % (40-80); PLATELET COUNT 192 10x3/uL (130-400); RBC 3.56 10x6/uL (4.00-5.40); RDW 20.2 % (11.5-14.5)
[2017-12-18 04:46] LABS: WBC 6.1 10x3/uL (4.8-10.8)
[2017-12-18 05:06] LABS: ANION GAP 7.9 mmol/L (8-16); BILIRUBIN - TOTAL 0.63 mg/dL (0.2-1.3); CALCIUM 7.7 mg/dL (8.5-10.1); CARBON DIOXIDE 29.5 mmol/L (21.0-32.0); CREATININE - SERUM 0.8 mg/dL (0.6-1.3); MAGNESIUM - SERUM 1.8 mg/dL (1.8-2.4); POTASSIUM - SERUM 3.4 mmol/L (3.5-5.1); PROTEIN - SERUM 5.1 g/dL (6.4-8.2)
[2017-12-18 10:25] LABS: FUNGUS STAIN Final report (())
[2017-12-19] VITALS (13 sets, daily range): BP systolic 106–137; BP diastolic 48–80
[2017-12-19 04:21] LABS: BASOPHILS 0.3 % (0-2); EOSINOPHILS 5.7 % (0-7); HEMATOCRIT 31.9 % (36.0-48.0); HEMOGLOBIN 10.3 g/dL (12-16); IMMATURE GRANULOCYTES 0.6 % (0-5); LYMPHOCYTES 13.4 % (15-50); MCH 29.5 pg (26.0-34.0); MCHC 32.3 g/dL (31.0-37.0); MCV 91.4 fL (80.0-100.0); MEAN PLATELET VOLUME 9.4 fL (7.4-10.4); MONOCYTES 12.5 % (2-11); NEUTROPHILS 67.5 % (40-80); PLATELET COUNT 188 10x3/uL (130-400); RBC 3.49 10x6/uL (4.00-5.40); RDW 21.3 % (11.5-14.5); WBC 6.8 10x3/uL (4.8-10.8)
[2017-12-19 04:39] LABS: ALKALINE PHOSPHATASE 32 U/L (46-116); ALT (SGPT) 37 U/L (10-68); BILIRUBIN - TOTAL 0.58 mg/dL (0.2-1.3); CALC OSMOLALITY 273 mosm/kg (275-300); CALCIUM 7.4 mg/dL (8.5-10.1); CARBON DIOXIDE 24.9 mmol/L (21.0-32.0); CHLORIDE - SERUM 106 mmol/L (98-107); CREATININE - SERUM 0.7 mg/dL (0.6-1.3); GLUCOSE 82 mg/dL (74-106); MAGNESIUM - SERUM 1.7 mg/dL (1.8-2.4); PHOSPHOROUS 3.3 mg/dL (2.5-4.9); PROTEIN - SERUM 5.1 g/dL (6.4-8.2); SODIUM 138 mmol/L (136-145); UREA NITROGEN 11 mg/dL (7-18); eGFR NON AFRICAN AMERICAN 85 mL/min (90-120)
[2017-12-19 04:41] LABS: POTASSIUM - SERUM 3.7 mmol/L (3.5-5.1)
[2017-12-20] VITALS: BP 108/41
[2017-12-20 04:00] VITALS: BP 116/38
[2017-12-20 05:52] LABS: BASOPHILS 0.6 % (0-2); EOSINOPHILS 6.7 % (0-7); HEMATOCRIT 33.3 % (36.0-48.0); HEMOGLOBIN 10.7 g/dL (12-16); IMMATURE GRANULOCYTES 0.7 % (0-5); LYMPHOCYTES 19.1 % (15-50); MCH 29.4 pg (26.0-34.0); MCHC 32.1 g/dL (31.0-37.0); MCV 91.5 fL (80.0-100.0); MEAN PLATELET VOLUME 8.7 fL (7.4-10.4); MONOCYTES 10.1 % (2-11); NEUTROPHILS 62.8 % (40-80); PLATELET COUNT 210 10x3/uL (130-400); RBC 3.64 10x6/uL (4.00-5.40); RDW 21.5 % (11.5-14.5); WBC 8.2 10x3/uL (4.8-10.8)
[2017-12-20 06:00] VITALS: BP 129/46
[2017-12-20 06:05] LABS: ALBUMIN 2.2 g/dL (3.4-5.0); ANION GAP 9.2 mmol/L (8-16); BILIRUBIN - TOTAL 0.42 mg/dL (0.2-1.3); CALCIUM 7.7 mg/dL (8.5-10.1); CARBON DIOXIDE 27.2 mmol/L (21.0-32.0); CREATININE - SERUM 0.8 mg/dL (0.6-1.3); POTASSIUM - SERUM 3.4 mmol/L (3.5-5.1); PROTEIN - SERUM 5.3 g/dL (6.4-8.2)
[2017-12-20 20:00] VITALS: BP 145/60
[2017-12-21 00:07] VITALS: BP 126/51
[2017-12-21 04:00] VITALS: BP 107/50
[2017-12-21 05:25] LABS: BASOPHILS 0.3 % (0-2); EOSINOPHILS 6.1 % (0-7); HEMOGLOBIN 10.2 g/dL (12-16); IMMATURE GRANULOCYTES 0.9 % (0-5); LYMPHOCYTES 18.2 % (15-50); MCH 29.4 pg (26.0-34.0); MCHC 31.9 g/dL (31.0-37.0); MCV 92.2 fL (80.0-100.0); MEAN PLATELET VOLUME 8.9 fL (7.4-10.4); MONOCYTES 7.8 % (2-11); NEUTROPHILS 66.7 % (40-80); PLATELET COUNT 210 10x3/uL (130-400); RBC 3.47 10x6/uL (4.00-5.40); RDW 21.7 % (11.5-14.5); WBC 7.9 10x3/uL (4.8-10.8)
[2017-12-21 05:43] LABS: ALBUMIN 2.2 g/dL (3.4-5.0); BILIRUBIN - TOTAL 0.5 mg/dL (0.2-1.3); CALCIUM 8.1 mg/dL (8.5-10.1); CARBON DIOXIDE 25.7 mmol/L (21.0-32.0); CREATININE - SERUM 0.8 mg/dL (0.6-1.3); MAGNESIUM - SERUM 1.9 mg/dL (1.8-2.4); PHOSPHOROUS 4.2 mg/dL (2.5-4.9); POTASSIUM - SERUM 3.7 mmol/L (3.5-5.1); PROTEIN - SERUM 5.3 g/dL (6.4-8.2)
[2017-12-21] MEDS ORDERED: NYSTATIN ORAL SU5 ML PO (07:18)
[2017-12-21] MEDS ORDERED: FLORASTOR250 MG PO (07:19)
[2017-12-21] MEDS ORDERED: PLAVIX75 MG PO (07:19)
[2017-12-21] MEDS ORDERED: ASPIRIN81 MG PO (07:19)
[2017-12-21] MEDS ORDERED: CORDARONE200 MG PO (07:19)
[2017-12-21] MEDS ORDERED: ACETAMINOPHEN325 MG PO (07:19)
[2017-12-21] MEDS ORDERED: SYNTHROID112 MCG PO (07:20)
[2017-12-21 08:31] VITALS: BP 121/60
[2017-12-21 11:13] VITALS: BP 118/65
[2017-12-21 14:53] VITALS: BP 123/63
[2017-12-23 14:24] LABS: FUNGUS MYCOLOGY CULTURE Preliminary report (())
== END 2017-12-21 18:18 | disposition home or self-care (01) | DRG 271 ==
LOC: D.ER 19:11 → D.EDHOLD 22:35 → D.ICU 22:35 → D.M2 12-19 12:02
PROVIDERS: Emergency Medicine; Family Medicine; Internal Medicine Cardiovascular Disease; Internal Medicine Interventional Cardiology
PROC: 02BN0ZZ Excision of Pericardium, Open Approach (ICD-10-PCS; principal; 2017-12-15 14:30)
PROC: B2111ZZ Fluoroscopy of Multiple Coronary Arteries using Low Osmolar Contrast (ICD-10-PCS; 2017-12-18)
PROC: B2151ZZ Fluoroscopy of Left Heart using Low Osmolar Contrast (ICD-10-PCS; 2017-12-18)
PROC: 4A023N7 Measurement of Cardiac Sampling and Pressure, Left Heart, Percutaneous Approach (ICD-10-PCS; 2017-12-18)
PROC: 027236Z Dilation of Coronary Artery, Three Arteries with Three Drug-eluting Intraluminal Devices, Percutaneous Approach (ICD-10-PCS; 2017-12-18 13:45)
DX: I48.91 Unspecified atrial fibrillation (principal); I31.3 Pericardial effusion (noninflammatory); I97.89 Other postprocedural complications and disorders of the circulatory system, not elsewhere classified; C79.89 Secondary malignant neoplasm of other specified sites; I25.110 Atherosclerotic heart disease of native coronary artery with unstable angina pectoris; I31.4 Cardiac tamponade; R07.9 Chest pain, unspecified; Z85.3 Personal history of malignant neoplasm of breast; I95.9 Hypotension, unspecified; E03.9 Hypothyroidism, unspecified; K21.9 Gastro-esophageal reflux disease without esophagitis; R53.81 Other malaise; R19.7 Diarrhea, unspecified; B37.9 Candidiasis, unspecified

== ENCOUNTER → 2018-04-20 15:13 | Outpatient (CLI) | payer MEDICARE ==
[2017-12-15 11:53] VITALS: BMI 21.2
[~2018-04-20 15:13] MED LIST changes: +ACETAMINOPHEN325 MG PO; +ASPIRIN81 MG PO; +BUPROPION XL300 MG PO; +CORDARONE200 MG PO; +FLORASTOR250 MG PO; +NYSTATIN ORAL SU5 ML PO; +OMEPRAZOLE40 MG PO; +PLAVIX75 MG PO; +SYNTHROID112 MCG PO
== END | disposition home or self-care (01) ==
LOC: D.CT 15:13
DX: C50.812 Malignant neoplasm of overlapping sites of left female breast (principal)

== ENCOUNTER → 2018-04-26 14:13 | Outpatient (CLI) | payer MEDICARE ==
[2017-12-15 11:53] VITALS: BMI 21.2
== END | disposition home or self-care (01) ==
LOC: D.CT 04-23 14:30
DX: C78.5 Secondary malignant neoplasm of large intestine and rectum (principal); C50.812 Malignant neoplasm of overlapping sites of left female breast

== ENCOUNTER 2018-04-27 05:50 | Day surgery (SDC) | payer MEDICARE ==
[2018-04-26 16:24] LABS: BASOPHILS 1.5 % (0-2); HEMATOCRIT 38.6 % (36.0-48.0); HEMOGLOBIN 12.3 g/dL (12-16); IMMATURE GRANULOCYTES 0.6 % (0-5); LYMPHOCYTES 18.1 % (15-50); MCH 28.9 pg (26.0-34.0); MCHC 31.9 g/dL (31.0-37.0); MCV 90.8 fL (80.0-100.0); MEAN PLATELET VOLUME 8.9 fL (7.4-10.4); MONOCYTES 9.3 % (2-11); NEUTROPHILS 67.5 % (40-80); PLATELET COUNT 180 10x3/uL (130-400); RBC 4.25 10x6/uL (4.00-5.40); RDW 17.6 % (11.5-14.5); WBC 4.6 10x3/uL (4.8-10.8)
[2018-04-26 16:33] LABS: ANION GAP 11.9 mmol/L (8-16); CALCIUM 8.6 mg/dL (8.5-10.1); CARBON DIOXIDE 28.1 mmol/L (21.0-32.0); CREATININE - SERUM 0.9 mg/dL (0.6-1.3); PROTIME 12.7 SECONDS (11.6-15.0)
[~2018-04-27] VITALS: Ht 172.7 cm; Wt 59.0 kg
[2018-04-27 06:21] VITALS: Ht 172.7 cm; Wt 59.0 kg
--- NOTE | 2018-04-27 11:18 | NUR ---
DC INSTRUCTIONS GIVEN TO PT/FAMILY. STATE UNDERSTANDING. DC'D IV CATH FULLY INTACT.
--- NOTE | 2018-04-27 11:24 | NUR ---
PT LEFT UNIT VIA WC AT 1123
--- NOTE | 2018-04-30 18:02 | OP ---
PATIENT NAME: ROBBIN LONG MEDICAL RECORD: [id number] :37 LOCATION:D.[facility] ADMISSION DATE: SURGEON: WALTER ARAGON MD DATE OF OPERATION: 04/27/2018 PREOPERATIVE DIAGNOSIS: Metastatic breast cancer, in need of IV access for chemotherapy. POSTOPERATIVE DIAGNOSIS: Metastatic breast cancer, in need of IV access for chemotherapy. PROCEDURES: 1. Placement of right infraclavicular PowerPort under fluoroscopic guidance. 2. Immediate surgeon interpretation of the fluoroscopic images. SURGEON: Walter Aragon MD VOCAL MUSIC TEACHER: None. BLOOD LOSS: Minimal. ANESTHESIA: General. COMPLICATIONS: None. The patient elected to have the port placed on the right side as she has undergone a mastectomy on the left. No radiologist was present for this procedure. Static fluoroscopic images were obtained and are kept in the PACS system. The surgeon interpretation of the radiographic images is dictated within the body of this operative note. The risks, possible complications, and alternatives to the procedure were explained to the patient. She elects to proceed. The discussion specifically included, but was not limited to, bleeding requiring emergency reoperation; infection; possibility that port could flip, it could break, it could become nonfunctional, it could perhaps flush but not aspirate. OPERATIVE COURSE: The patient was conveyed to the operating room electively on 04/27/2018. General anesthesia was induced by the anesthesia staff. The right neck and right chest were sterilely prepped and draped. Under ultrasonographic guidance, I percutaneously accessed the right internal jugular vein in an antegrade fashion. The guidewire was passed easily. This was visualized under fluoroscopy. An incision was accomplished around the guidewire. Another incision was accomplished in the right superior-anterior infraclavicular chest. A subcutaneous pocket was created in a caudad direction. I then excised some of the subcutaneous adipose tissue from the pectoralis fascia to the skin to allow for easier access of the port. The catheter was tunneled from the chest incision to the neck incision. Over the wire, I placed a dilator sheath. The dilator and wire were removed. Through the sheath, the PowerPort catheter was advanced. The Peel-Away sheath was then removed. I pulled back on the PowerPort catheter until its tip was at the cavoatrial junction. I then shortened the catheter. It was attached to the PowerPort and OPERATIVE REPORT [id number] ROBBIN LONG the locking device was firmly engaged. The port was then sutured to the underlying pectoralis fascia with 3-point fixation utilizing 3-0 Prolenes. I irrigated in the port pocket. There was no bleeding. Images were obtained over the mediastinum and this revealed no radiographic evidence of complication. Another image was obtained over the right lung apex and this revealed no apparent kinking or twisting of the PowerPort catheter and there was no pneumothorax. The neck incision was closed with interrupted intracuticular 3-0 Vicryls. The skin at the port site was closed in the following manner: Subcutaneous tissue was closed with interrupted 3-0 Vicryls. Skin was approximated with a running intracuticular 4-0 Vicryl. I then percutaneously accessed the port. It accessed easily. It flushed easily and aspirated dark, nonpulsatile blood. I then flushed the port out with heparinized saline. We kept the port accessed as the patient is going to undergo chemotherapy the following day. A sterile dressing was applied. The patient was then extubated and conveyed to the postanesthesia care unit, where she was in the stable condition. TRANSINT:[id number] Voice Confirmation ID: [id number] DOCUMENT ID: [id number] WALTER ARAGON MD at 1802 CC: JOY GN DO and WALTER HERNANDEZ [id number] DICTATION DATE: 04/29/18 1150 SIX PACK PACKER: 04/29/[address] [facility] 04/27/18 [id number] [place] [address]
== END 2018-04-27 11:28 | disposition home or self-care (01) ==
LOC: D.OPS 05:50
PROVIDERS: Anesthesiology
DX: C50.919 Malignant neoplasm of unspecified site of unspecified female breast (principal); C79.9 Secondary malignant neoplasm of unspecified site; Z01.812 Encounter for preprocedural laboratory examination

== ENCOUNTER → 2018-06-07 12:25 | Outpatient (CLI) | payer MEDICARE ==
[2018-04-27 06:21] VITALS: BMI 19.8
== END | disposition home or self-care (01) ==
LOC: D.MRI 12:25
DX: M54.5 Low back pain (principal); S32.019A Unspecified fracture of first lumbar vertebra, initial encounter for closed fracture; X58.XXXA Exposure to other specified factors, initial encounter; C79.81 Secondary malignant neoplasm of breast

== ENCOUNTER → 2018-06-10 13:22 | Outpatient (CLI) | payer MEDICARE ==
[~2018-06-10] VITALS: Ht 172.7 cm; Wt 59.1 kg
[2018-06-10 16:29] VITALS: Ht 172.7 cm; Wt 59.1 kg
[2018-06-10 17:22] LABS: APPEARANCE CLEAR (CLEAR); BILIRUBIN NEGATIVE (NEGATIVE); COLOR YELLOW (YELLOW); GLUCOSE NEGATIVE (NEGATIVE); KETONE NEGATIVE (NEGATIVE); NITRITE NEGATIVE (NEGATIVE); PROTEIN NEGATIVE (NEGATIVE); UROBILINOGEN NORMAL (NORMAL)
== END | disposition home or self-care (01) ==
LOC: D.OPS 10:30
PROVIDERS: ATTEND Family Medicine
DX: N39.0 Urinary tract infection, site not specified (principal)

== ENCOUNTER 2018-06-18 09:36 | Outpatient (CLI) | payer MEDICARE ==
[~2018-06-18] VITALS: Ht 172.7 cm; Wt 59.1 kg
--- NOTE | ~2018-06-18 | HEMODYNAMI ---
PATIENT:ROBBIN LONG MEDICAL RECORD: [id number] : 37 LOCATION:[facility] ADMISSION DATE: 06/18/18 Generatedon:06/23/201812:49 Patient name: ROBBIN LONG Patient #: [id number] SSN: : 1935 Date of study: 06/18/2018 Page: Of Hemodynamic Procedure Report Patient Data Patient Demographics Procedure consent was obtained First Name: ROBBIN Gender: Female Last Name: MERCEDES : 1935 Middle Initial: NATHALY Age: 83 year(s) Patient #: [id number] Race: Unknown Additional ID: [id number] Contact details [address]: [address] [place] [address] [place] State: [place] City: [place] Zip code: [address] Past Medical History Allergies: No known allergies Admission Admission Data Admission Date: 06/22/2018 Admission Time: 8:00 Procedure Procedure Types Cath Procedure Peripheral Cath Diagnostic Procedure Kyphoplasty Kyphoplasty Lumbar Procedure Description Procedure Date Procedure Date: 06/18/2018 Procedure Start Time: 13:36 Procedure Staff Name Function Shalonda Jauregui RT Bottom Stainer Allan Villalobos RT Scrub Saúl Garza MD Performing Physician Maddy Davis RN Nurse Moira Henry RT Monitor Procedure Data Cath Procedure Fluoroscopy Diagnostic fluoroscopy Total fluoroscopy Time: time: 11.8 min 11.8 min Diagnostic fluoroscopy Total fluoroscopy dose: 273 dose: 273 mGy mGy Procedure Medications Medication Administration Route Dosage Heparin Flush Bag added to field 1 bags (1000units/500ml NS) Lidocaine 1% added to field 20 Hemodynamics Rest Heart Rate: 59 (bpm) Snapshots Pre Cath Intra NCS Post Cath Vital Signs Time Heart Resp SPO2 etCO2 NIBP (mmHg) Rhythm Pain Sedation Rate (ipm) (%) (mmHg) Status Level (bpm) 13:31:38 59 13 100 28.4 142/51(90) NSR 0 (11) 10(A) , No pain 13:35:58 58 30 100 0 108/44(65) NSR 0 (11) 8(A) , No pain 13:40:12 61 14 98 39.6 111/45(75) NSR 0 (11) 8(A) , No pain 13:44:26 62 9 98 28.4 104/35(62) NSR 0 (11) 8(A) , No pain 13:48:38 63 13 97 38.1 99/37(66) NSR 0 (11) 8(A) , No pain 13:52:50 65 10 97 29.1 99/29(58) NSR 0 (11) 8(A) , No pain 13:57:02 66 15 97 27.6 95/34(62) NSR 0 (11) 8(A) , No pain 14:01:10 67 12 97 19.4 105/49(76) NSR 0 (11) 8(A) , No pain 14:05:19 67 12 98 20.9 111/49(71) NSR 0 (11) 8(A) , No pain 14:09:31 68 13 97 30.6 119/51(79) NSR 0 (11) 8(A) , No pain 14:13:41 71 20 97 32.8 128/65(96) NSR 0 (11) 8(A) , No pain 14:17:58 73 10 89 0 129/54(83) NSR 0 (11) 8(A) , No pain 14:22:55 72 12 98 37.4 138/65(104) NSR 0 (11) 8(A) , No pain 14:27:09 71 13 98 34.4 146/65(105) NSR 0 (11) 8(A) , No pain 14:31:08 0 No Cuff NSR 0 (11) 8(A) , No pain Medications Time Medication Route Dose Verified Delivered Reason Notes Effe ctiveness by by 13:32:05 Heparin Flush added 1 Saúl Hays used for Bag to bags Greg Garza procedure (1000units/500ml field MD SHANKAR NS) 13:32:16 Lidocaine 1% added 20ml Saúl Hays for local to vial Greg Garza anesthetic field MD SHANKAR Procedure Log Time Note 13:05:06 Use device set IR Diagnostic 13:07:14 Time tracking: Regular hours (M-F 7:00 - 5:00) 13:08:02 H&P Date Dictated: 06/18/2018 Within 30 days and on chart.. 13:08:08 Signed procedure consent form obtained from patient. 13:08:17 Patient received from Outpatients to IR Alert and oriented. Tansferred to table in Prone position. 13:08:20 - 13:08:50 Pre-op teaching completed and patient verbalized understanding. 13:08:50 Pre-procedure instructions explained to patient. 13:08:54 Family in waiting room. 13:08:57 Patient NPO since Midnight. 13:09:06 Patient allergic to No known allergies 13:09:08 - 13:21:08 ----Pre-sedation anethsthesia assessment.----please see anesthesia note s for monitoring of patient during procedure 13:21:43 - 13:22:48 ELIZABETH AUTOPLEX MIXER W/VHV opened to sterile field. 13:22:57 Elizabeth 11G Curved Needle opened to sterile field. 13:23:13 ELIZABETH 15/2 VERT AUGMENTATION opened to sterile field. 13:23:17 Arbon BONE BX 11GA kit opened to sterile field. 13:23:24 - 13:30:24 ECG and BP/O2 sat monitors applied to patient. 13:30:25 Vital chart was started 13:30:26 Baseline sample Acquired. 13:30:27 Full Disclosure recording started 13:30:28 - 13:32:05 Heparin Flush Bag (1000units/500ml NS) 1 bags added to field was administered by Saúl Garza MD; used for procedure; 13:32:16 Lidocaine 1% 20ml vial added to field was administered by Saúl mclaughlin MD; for local anesthetic; 13:33:31 Physician arrived 13:34:23 --------ALL STOP TIME OUT------ 13:34:24 Final Timeout: patient, procedure, and site verified with staff and physician. All members of the team are in agreement. 13:36:06 Procedure started. 13:36:54 Local anesthetic to Lumbar area with Lidocaine 1% by Saúl Garza MD.INITIAL ACCESS ONLY 13:42:41 Jamshidi needle introduced. 13:47:13 Bone bx needle placed. 13:48:38 Kyphoplasty balloon introduced. 13:52:06 Cement introduced to vertebral body. 14:12:29 Jamshidi needle removed. 14:18:57 Procedure ended.(Physican Out) 14:29:55 Fluoroscopy time 11.80 minutes. 14:30:01 Fluoroscopy dose: 273 mGy 14:30:01 Flurop Dose total: 273 14:30:03 Procedure and supply charges have been captured, reviewed, submitted an d are correct. 14:31:35 Vital chart was stopped 14:31:41 Full Disclosure recording stopped Device Usage Item Name Manufacture Quantity Catalog Hospital Part Current Minim al Lot# / Number Charge Number Stock Stock Serial# Code ELIZABETH Ayalaer 1 [id number] 5 AUTOPLEX MIXER W/VHV Arbon 11G Elizabeth 1 [id number] 5 Curved Needle ELIZABETH 15/2 Arbon 1 [id number] [id number] 5 VERT AUGMENTATION Arbon BONE Elizabeth 1 [id number] 5 BX 11GA kit Signature Audit [place] Stage Time Signature Unsigned Intra-Procedure 06/18/2018 Shalonda Pizarro Counts 2:31:30 PM RT(R) RT(R) 06/23/2018 12:48:40 PM Intra-Procedure 06/23/2018 Moira 12:49:17 PM Counts RT(R) Signatures Monitor : Moira Signature : Counts RT Date : Time : [id number] [place] [address]
[2018-06-18] MEDS ORDERED: XANAX0.5 MG (11:22)
[2018-06-18] MEDS ORDERED: PERCOCET 10-321 EAC1 PO (11:23)
[2018-06-18 11:48] VITALS: Ht 172.7 cm; Wt 59.1 kg
[2018-06-18 12:15] LABS: ANION GAP 11.9 mmol/L (8-16); CALCIUM 8.1 mg/dL (8.5-10.1); CARBON DIOXIDE 28.2 mmol/L (21.0-32.0); CREATININE - SERUM 0.9 mg/dL (0.6-1.3); POTASSIUM - SERUM 4.1 mmol/L (3.5-5.1)
[2018-06-18 12:24] LABS: APTT 29.8 SECONDS (22.8-39.4); INR 1.07 (0.85-1.17); PROTIME 13.4 SECONDS (11.6-15.0)
[2018-06-18 12:36] LABS: BASOPHILS 1.2 % (0-2); EOSINOPHILS 2.4 % (0-7); HEMATOCRIT 33.2 % (36.0-48.0); HEMOGLOBIN 10.5 g/dL (12-16); IMMATURE GRANULOCYTES 1.5 % (0-5); LYMPHOCYTES 17.2 % (15-50); MCH 29.3 pg (26.0-34.0); MCHC 31.6 g/dL (31.0-37.0); MCV 92.7 fL (80.0-100.0); MEAN PLATELET VOLUME 9.5 fL (7.4-10.4); MONOCYTES 11.2 % (2-11); NEUTROPHILS 66.5 % (40-80); RBC 3.58 10x6/uL (4.00-5.40); RDW 17.2 % (11.5-14.5); WBC 4.1 10x3/uL (4.8-10.8)
[2018-06-18 12:39] LABS: PLATELET COUNT 257 10x3/uL (130-400)
--- NOTE | 2018-06-18 14:40 | NUR ---
REC'D FROM SPECIALS ACCOMPANIED BY FAMILY. PT TO LAY FLAT FOR ONE HOUR. VERBALIZED UNDERSTANDING.
--- NOTE | 2018-06-18 15:10 | NUR ---
EATING ICE CHIPS. DOES NOT WANT ANYTHING TO EAT UNTIL SHE CAN SIT UP MORE. FAMILY AT BEDSIDE.
--- NOTE | 2018-06-18 16:40 | NUR ---
UP TO BATHROOM. VOIDED WITHOUT DIFFICULTY. DRESSING CDI. NO C/O VOICED.
--- NOTE | 2018-06-18 16:45 | NUR ---
GELA DEL VALLE SERVED TO PT. FAMILY AT BEDSIDE.
--- NOTE | 2018-06-18 17:25 | NUR ---
FLUSHED POWER PORT WITH HEPARIN. IV CATHETER DC'D WITH NEEDLE INTACT.
--- NOTE | 2018-06-18 17:45 | NUR ---
WRITTEN AND VERBAL DC INST. GIVEN TO PT. VERBALIZED UNDERSTANDING.
--- NOTE | 2018-06-18 18:00 | NUR ---
DC'D HOME WITH FAMILY VIA PRIVATE VEHICLE. TAKEN TO VEHICLE VIA WC. STABLE AT TIME OF DC.
== END 2018-06-18 18:00 | disposition home or self-care (01) ==
LOC: D.SP 09:36 → D.RAD 12:00 → D.SP 12:00
PROVIDERS: ATTEND Radiology Diagnostic Radiology
DX: M48.50XA Collapsed vertebra, not elsewhere classified, site unspecified, initial encounter for fracture (principal); C50.919 Malignant neoplasm of unspecified site of unspecified female breast; C79.9 Secondary malignant neoplasm of unspecified site

== ENCOUNTER 2018-07-23 17:26 | Emergency (ER) | payer MEDICARE ==
[~2018-07-23] VITALS: Ht 172.7 cm; Wt 59.1 kg
[~2018-07-23 17:26] MED LIST changes: +PERCOCET 10-321 EAC1 PO; +XANAX0.5 MG
[2018-07-23 17:35] VITALS: Ht 172.7 cm; Wt 59.1 kg
[2018-07-23 22:57] VITALS: BP 126/44
== END 2018-07-23 22:57 | disposition home or self-care (01) ==
LOC: D.ER 17:26
DX: R53.1 Weakness (principal)

== ENCOUNTER → 2018-09-13 09:13 | Outpatient (CLI) | payer MEDICARE ==
[2018-07-23 17:35] VITALS: BMI 19.8
--- NOTE | 2018-09-14 14:37 | EC ---
PATIENT:ROBBIN LONG DATE OF SERVICE: 09/13/18 SEX: F MEDICAL RECORD: [id number] DATE OF : 39 LOCATION:D.[facility] AGE OF PATIENT: 83 ADMISSION DATE: 09/13/18 REFERRING PHYSICIAN: INTERPRETING PHYSICIAN: MYNOR BANGURA MD ECHOCARDIOGRAM REPORT ECHO CHARGES 4 ECHO COMPLETE Date: 09/13/18 CLINICAL DIAGNOSIS: CHEMO ECHOCARDIOGRAPHIC MEASUREMENTS (adult normal given) AC root (d.<3.7cm) 2.4 cm LV Septum d (<1.2 cm> 0.9 cm Valve Excursion 1.6 cm LV Septum (systole) 1.4 cm Left Atria (s.<4.0cm> 3.0 cm LVPW d(<1.2cm) 1.0 cm RV (d.<2.3cm) 2.1 cm LVPW (sytole) 1.4 cm LV diastole(<5.6CM) 3.9 cm MV E-F(>70mm/sec) cm LV systole 2.5 cm LVOT Diameter 1.4 cm MV exc.(>10mm) cm Est.ejection fraction (50-75%) % DOPPLER: LVIT cm/sec A 79 cm/sec E 58 cm/sec LA cm/sec RVSP 36.5 mmHg LVOT 73 cm/sec AOP1/2T m/s Asc. Ao 128 cm/sec RVOT 81 cm/sec RA cm/sec PA 108 cm/sec AV Gradient Peak 6.5 mmHg AV Mean 3.1 mmHg AV Area 0.7 cm MV Gradient Peak 3.9 mmHg MV Mean 1.4 mmHg MV Area cm COMMENTS: Tank Stave Assembler: Halie TAYLOR Stable Helper: Meera Bangura TAPE# PACS Pericardial Effusion N DATE OF SERVICE: 09/13/2018 PROCEDURE: Echocardiogram. FINDINGS: 1. Left ventricular chamber size is within normal limits. Left ventricular systolic function is preserved at 45% to 50%. 2. Left atrium, right atrium, and right ventricular chamber sizes are within normal limits. 3. Valvular structures have normal structure and motion. ECHOCARDIOGRAM REPORT [id number] ROBBIN LONG 4. Doppler interrogation reveals mild mitral regurgitation, mild tricuspid regurgitation, no other valvular insufficiency or stenosis. Pulmonary systolic pressure is estimated 36 mmHg. 5. No evidence of pericardial effusion or left ventricular thrombus. TRANSINT:[id number] Voice Confirmation ID: [id number] DOCUMENT ID: [id number] MYNOR BANGURA MD at 1437 CC: [id number] DICTATION DATE: 09/13/18 1123 JOURNAL ENTRY AUDIT CLERK: 09/13/18 1154 DEP CLI 09/13/18 [address] [id number] [place] [id number]
== END | disposition home or self-care (01) ==
LOC: D.ECHO 09-10 09:00
PROVIDERS: ATTEND Internal Medicine Hematology & Oncology
DX: C50.812 Malignant neoplasm of overlapping sites of left female breast (principal); C78.5 Secondary malignant neoplasm of large intestine and rectum; C78.89 Secondary malignant neoplasm of other digestive organs; M54.5 Low back pain; D70.1 Agranulocytosis secondary to cancer chemotherapy; D64.81 Anemia due to antineoplastic chemotherapy; D50.9 Iron deficiency anemia, unspecified; D51.9 Vitamin B12 deficiency anemia, unspecified